=== PATIENT | female | born 1955 | race Two or more races ===

== ENCOUNTER 2020-06-21 19:15 | Emergency (ER) | payer SELFPAY ==
[~2020-06-21] VITALS: Ht 160 cm; Wt 70.3 kg
--- NOTE | 2020-06-21 19:30 | NUR ---
PATIENT BIB [facility]. PER REPORT PATIENT WAS FOUND SLIPPING AT THE PARK IN A DITCH. PATIENT UPON ARRIVAL SPEAKING CLEARLY, A/OX3. DENIES ANY DISTRESS. DR JAIN INTO EVAL PATIENT.
--- NOTE | 2020-06-21 19:45 | NUR ---
Patient discharged to home in stable condition. Written and verbal after care instructions given. Patient verbalizes understanding of instructions. Stressed follow up or return to ER for worsening s/s.
[2020-06-21 19:47] VITALS: BP 108/72
== END 2020-06-21 19:48 | disposition home or self-care (01) ==
LOC: ER 19:18
DX: Z00.00 Encounter for general adult medical examination without abnormal findings (principal)
CPT/HCPCS: A4663